=== PATIENT | male | born 1965 | race Caucasian/White ===

== ENCOUNTER 2019-01-14 15:21 | Emergency (ER) | payer SELFPAY ==
[~2019-01-14] VITALS: Ht 172.7 cm; Wt 95.3 kg
[2019-01-14 15:29] VITALS: BP_SYST 126
--- NOTE | 2019-01-14 15:48 | NUR ---
Patient is awake, alert, and oriented x4. 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 Patient is complaining of sharp lower rib cage pain 6/10. He denies nausea and vomiting.
--- NOTE | 2019-01-14 15:49 | NUR ---
ER JESS Carmona examining patient.
[2019-01-14] MEDS ORDERED: IBUPROFEN 600 MG TABLET PO ONE (16:00)
[2019-01-14 16:22] LABS: BILIRUBIN,URINE NEGATIVE (NEGATIVE); BLOOD, URINE NEGATIVE (NEGATIVE); CLARITY/URINE CLEAR (CLEAR); COLOR,URINE YELLOW (YELLOW); GLUCOSE,URINE NEGATIVE (NEGATIVE); KETONES,URINE NEGATIVE (NEGATIVE); LEUKOCYTE ESTERASE ,URINE NEGATIVE (NEGATIVE); NITRITE, URINE NEGATIVE (NEGATIVE); PROTEIN URINE NEGATIVE (NEGATIVE); UROBILINOGEN,URINE 0.2 (0.2-1.0)
[2019-01-14 17:01] VITALS: BP_SYST 128
--- NOTE | 2019-01-14 17:02 | NUR ---
Patient given written and verbal discharge instructions and verbalizes understanding. ER MD discussed with patient the results and treatment provided. Patient in stable condition. ID arm band removed. I Rx of Motrin and [place] given. Patient educated on pain management and to follow up with PMD. Pain Scale 2/10 tolerable for patient. Opportunity for questions provided and answered. Medication side effect fact sheet provided.
== END 2019-01-14 17:01 | disposition home or self-care (01) ==
LOC: SED 15:21
DX: S20.212A Contusion of left front wall of thorax, initial encounter (principal); R03.0 Elevated blood-pressure reading, without diagnosis of hypertension; W17.89XA Other fall from one level to another, initial encounter; Y93.89 Activity, other specified; Y92.89 Other specified places as the place of occurrence of the external cause; Y99.8 Other external cause status
CPT/HCPCS: 71045; 71100; 81003; 99283; 99284